=== PATIENT | male | born 1965 | race Caucasian/White ===

== ENCOUNTER 2024-01-01 09:55 | Emergency (ER) | payer MEDICAID, SELFPAY ==
[2024-01-01 09:55] VITALS: BP 118/88; PULSE 87; RESP 16; TEMP 37.2; O2SAT 97; BMI 18.7
--- NOTE | 2024-01-01 11:07 | EDS_ITS ---
HPI History of Present Illness Chief Complaint: Abd Pain Informant: patient and spouse/S.O. Narrative Narrative: 58-year-old male presenting to the emergency room chief complaint of not feeling well. Patient notes about 3 days he has had runny nose cough with sputum production nausea with occasional emesis ear fullness with pain behind the left ear, subjective fever and chills generalized myalgias. He notes that he left work yesterday as well as 2 other people due to the similar symptoms. He denies any diarrhea or rash. He is a smoker. He otherwise denies any other medical conditions. PFSH PFSH Home Medications ?Medication ?Instructions ?Recorded ?Last Taken ?Type doxycycline hyclate 100 mg capsule 100 mg PO BID #20 caps 01/01/24 Unknown Rx Allergy/AdvReac Type Severity Reaction Status Date / Time Penicillins (PCN) Allergy UNKNOWN Verified 01/01/24 09:56 Social History (Updated 01/01/24 @ 11:[address] Idris Meza, DO) Smoking Status: Current every day smoker ROS ROS ED Constitutional Constitutional ED: Reports chills, fever(s) and subjective; Denies weight loss Eyes Eyes: Denies change in vision or diplopia ENT ENT ED: Reports ear pain, rhinorrhea and sore throat Cardiovascular Cardiovascular: Denies chest pain, orthopnea, palpitations or racing heartbeat Respiratory/Chest Respiratory/Chest: Reports cough and sputum; Denies dyspnea or orthopnea Gastrointestinal Gastrointestinal: Reports nausea, vomiting and other; Denies abdominal pain or diarrhea Genitourinary Genitourinary ED: Denies dysuria, hematuria or urinary frequency Musculoskeletal Musculoskeletal: Reports myalgias; Denies arthralgias or neck pain Integumentary Denies abscess or rash Neurologic Neurologic: Denies headache(s) or weakness Psychiatric Psychiatric: Denies anxiety, depression, suicidal ideation or suicidal thoughts Endocrine Endocrinology: Denies polydipsia, polyphagia or polyuria Allergic/Immunologic Allergic/Immunologic ED: Denies mouth swelling, tongue swelling or urticaria EXAM Physical Exam Const Vital Signs: 01/01/24 09:55 01/01/24 11:56 Temperature 99 F Temperature Source Temporal Pulse Rate 87 55 L Respiratory Rate 16 16 Blood Pressure 118/88 H 123/69 H Blood Pressure Mean 98 87 Pulse Ox 97 94 Oxygen Delivery Method Room Air Room Air Positive well nourished and well developed General Appearance ED: well developed HEENT Reports normocephalic, head/scalp atraumatic, TM's clear and moist mucous membranes HEENT Narrative: Mild turbinate edema. Bilateral tympanic membranes appear normal. No mastoid tenderness. No overlying mastoid erythema. Tympanic Membrane ED: Yes TM's clear Eyes PERRL and EOMs intact bilaterally Neck no lymphadenopathy, supple and no JVD Resp normal respiratory effort and clear to auscultation bilaterally Resp Narrative: Moist cough Cardio regular rate, regular rhythm and no murmurs GI normal to inspection, nondistended, normoactive bowel sounds and non-tender Palpation: soft Back/Spine no CVA tenderness and normal ROM Extremity normal to inspection General Extremety ED: Negative for edema General Extremity: Negative for edema Neuro oriented x3 and CN's II-XII intact bilaterally Sensorium / Orientation: alert Motor Exam: strength 5/5 throughout Psych mental status grossly normal Mood & Affect: Negative for depressed or tearful Skin no rashes or lesions noted and no wounds MDM MDM MDM Narrative Medical decision making narrative: Differential diagnosis includes but not limited to pneumonia bronchitis viral syndrome otitis media mastoiditis my independent interpretation the chest x-ray is no acute process. COVID influenza and RSV swabs were negative. Patient clinically appears well. I think most likely has a viral illness. However he is a smoker with chronic changes in his chest x-ray consistent with smoking who has an increase in sputum production. There may be a component of bacterial bronchitis with his headache and right upper send and doxycycline. Would recommend establishing primary care return if worsening or concerns supportive care like fluid hydration rest Tylenol Motrin. History & Record Review Discussion w/independent historian: Patient and Significant other Lab Data Attestation: I reviewed the patient's lab results. Radiography Diagnostic Testing: Clinical Impression(s) from Imaging Studies Chest X-Ray 01/01/24 11:25 IMPRESSION: Hyperinflation. The lungs are clear. Electronically Signed: Conner Figueroa MD at 11:57 EDT , Discharge Plan Triage Chief Complaint: Abd Pain ED Provider: Idris Meza Dx/Rx/DC Orders Clinical Impression: Bronchitis Prescriptions: New doxycycline hyclate 100 mg capsule 100 mg PO BID Qty: 20 0RF Primary Care Provider: Care Physician,No Primary Referrals: Evan Tavarez MD [Med Staff - Print Production Associate] - As Needed (for pcp follow up) Care Physician,No Primary [Primary Care Provider] - Print Language: Malawian Disposition Disposition: Home, Self Care
[2024-01-01] MEDS: Ondansetron ODT 4 MG Tablet PO (11:21)
--- NOTE | 2024-01-01 11:25 | RAD_ITS ---
STUDY: X-RAY CHEST REASON FOR EXAM: Male, 58 years old. Cough TECHNIQUE: Single AP portable view of the chest. COMPARISON: None. FINDINGS: Hyperinflation. The lungs are clear. There is no demonstrated pleural abnormality. Normal size heart. Normal mediastinum and rosemarie. Normal visualized pulmonary arteries. Normal visualized aortic arch and descending thoracic aorta. There are degenerative changes of the visualized thoracic spine. Normal visualized ribs, clavicles, and shoulders. There is no demonstrated abnormality of the visualized soft tissue structures of the upper abdomen. RAD/Chest 1 View (Portable) IMPRESSION: Hyperinflation. The lungs are clear. Electronically Signed: Conner Figueroa MD at 11:57 EDT ,
[2024-01-01 11:56] VITALS: BP 123/69; PULSE 55; RESP 16; O2SAT 94
[2024-01-01 12:32] VITALS: BP 104/73; PULSE 60; RESP 16; TEMP 36.8; O2SAT 96
== END 2024-01-01 12:43 | disposition home or self-care (01) ==
PROVIDERS: Emergency Provider Emergency Medicine; Visit Provider Emergency Medicine
DX: J40 Bronchitis, not specified as acute or chronic (principal); F17.200 Nicotine dependence, unspecified, uncomplicated
CPT/HCPCS: 71045; 87631; 99282

== ENCOUNTER 2024-03-22 12:34 | Emergency (ER) | payer MEDICAID, SELFPAY ==
[2024-03-22 12:36] VITALS: BP 126/77; PULSE 79; RESP 18; TEMP 36.6; O2SAT 99; BMI 15.7
[2024-03-22 12:39] VITALS: BP 126/77; PULSE 79; RESP 18; TEMP 36.6; O2SAT 99
--- NOTE | 2024-03-22 12:58 | RAD_ITS ---
STUDY: X-RAY CHEST REASON FOR EXAM: Male, 59 years old. Cough TECHNIQUE: PA and lateral views of the chest. COMPARISON: Comparison is made with prior study dated January 01, 2024. FINDINGS: There is hyperinflation of the lungs consistent with chronic obstructive lung disease (COPD). There is no demonstrated pleural abnormality. Normal size heart. Normal mediastinum and rosemarie. Normal visualized pulmonary arteries. Normal visualized aortic arch and descending thoracic aorta. There are degenerative changes of the visualized thoracic spine. Normal visualized ribs, clavicles, and shoulders. There is no demonstrated abnormality of the visualized soft tissue structures of the upper abdomen. RAD/Chest PA and Lateral IMPRESSION: Hyperinflation and COPD. Electronically Signed: Conner Figueroa MD at 13:30 EST ,
--- NOTE | 2024-03-22 12:59 | EDS_ITS ---
HPI <JOSE Tripp - Last Filed: 03/22/24 15:08> History of Present Illness Chief Complaint: General Illness Narrative Narrative: Patient presenting today with a productive cough he has had over the past 2 weeks. He reports that he occasionally coughs up yellow and white-colored phlegm. He does have a history of COPD, he does admit to smoking 1 pack/day. He moved to the area from [place] and does not currently have a PCP or rigging engineer. He does report pressure in his chest with coughing. Chronic dyspnea with exertion. No chest pain at rest. He denies any fevers, chills, and abdominal pain. PFSH <JOSE Tripp - Last Filed: 03/22/24 15:08> PFSH Home Medications ?Medication ?Instructions ?Recorded ?Last Taken ?Type doxycycline hyclate 100 mg capsule 100 mg PO BID #20 caps 01/01/24 Unknown Rx albuterol sulfate 90 mcg/actuation 1 - 2 puff inhalation Q4H PRN PRN 03/22/24 Unknown Rx aerosol inhaler (Ventolin HFA) Wheezing #1 inh doxycycline hyclate 100 mg capsule 100 mg PO BID 7 days #13 caps 03/22/24 Unknown Rx prednisone 20 mg tablet 40 mg (2 x 20 mg) PO DAILY 4 days 03/22/24 Unknown Rx #8 tabs Allergy/AdvReac Type Severity Reaction Status Date / Time Penicillins (PCN) Allergy UNKNOWN Verified 03/22/24 12:36 Social History (Updated 01/01/24 @ 11:[address] Idris Meza, DO) Smoking Status: Current every day smoker tobacco type: cigarettes ROS <JOSE Tripp - Last Filed: 03/22/24 15:08> ROS ED Constitutional Constitutional ED: Denies chills or fever(s) Cardiovascular Cardiovascular: Denies chest pain or palpitations Respiratory/Chest Respiratory/Chest: Reports cough and dyspnea on exertion; Denies wheezing Gastrointestinal Gastrointestinal: Denies abdominal pain, nausea or vomiting Musculoskeletal Musculoskeletal: Denies arthralgias or myalgias Integumentary Denies rash Neurologic Neurologic: Denies weakness EXAM <JOSE Tripp Last Filed: 03/22/24 15:08> Physical Exam Const Vital Signs: 03/22/24 12:36 03/22/24 12:39 03/22/24 12:44 Temperature 97.9 F 97.9 F Temperature Source Oral Oral Pulse Rate 79 79 Respiratory Rate 18 18 Respiratory Effort Non-Labored Blood Pressure 126/77 H 126/77 H Blood Pressure Mean 93 93 Pulse Ox 99 99 Oxygen Delivery Method Room Air Room Air 03/22/24 13:19 03/22/24 13:19 Temperature Temperature Source Pulse Rate 75 Respiratory Rate 20 H Respiratory Effort Blood Pressure Blood Pressure Mean Pulse Ox 96 Oxygen Delivery Method Room Air Positive well nourished, well developed and no apparent distress General Appearance ED: well developed HEENT Reports normocephalic and head/scalp atraumatic Mouth ED: Yes moist mucous membranes normal Eyes PERRL and EOMs intact bilaterally Neck full ROM and supple Chest Wall inspection of chest normal Resp normal respiratory effort Resp Narrative: Mild expiratory wheezes to the bilateral lung rojas Cardio regular rate and regular rhythm GI soft to palpation, non-tender, non-distended and no masses Back/Spine normal ROM and normal to inspection Extremity normal to inspection and full ROM Neuro oriented x3, CN's II-XII intact bilaterally, moves all extremities, no focal motor deficits and no sensory deficits noted Sensorium / Orientation: awake and alert Psych mental status grossly normal and thought process normal Skin no rashes or lesions noted and no wounds <Dr. Idris Meza DO - Last Filed: 03/22/24 14:21> Physical Exam Const Vital Signs: 03/22/24 12:36 03/22/24 12:39 03/22/24 12:44 Temperature 97.9 F 97.9 F Temperature Source Oral Oral Pulse Rate 79 79 Respiratory Rate 18 18 Respiratory Effort Non-Labored Blood Pressure 126/77 H 126/77 H Blood Pressure Mean 93 93 Pulse Ox 99 99 Oxygen Delivery Method Room Air Room Air 03/22/24 13:19 03/22/24 13:19 Temperature Temperature Source Pulse Rate 75 Respiratory Rate 20 H Respiratory Effort Blood Pressure Blood Pressure Mean Pulse Ox 96 Oxygen Delivery Method Room Air MDM <JOSE Tripp - Last Filed: 03/22/24 15:08> [facility] Narrative Medical decision making narrative: Patient presenting today due to a productive cough he has had over the past 2 weeks. He is nontoxic-appearing. His oxygen saturation is 99% on room air. He is afebrile. He does not have a rigging engineer in the area and uses Symbicort and Advair. Chest x-ray obtained and shows changes consistent with COPD. I do think that patient would benefit from antibiotics and steroids. He will be started on doxycycline and prednisone with first doses here. I have also given him an albuterol inhaler. Social work did provide patient with PCP referral resources. He was referred to pulmonology. Patient discharged home in stable condition. I have personally performed a face to face assessment of the patient and have reviewed the [place] Note. I performed a substantive portion of the visit including all aspects of the following. My carbajal findings include: History is 59-year-old male with a history of COPD presenting with cough sputum production and some dyspnea. Patient states he has been using Advair and also curing his Symbicort as a rescue inhaler.. States he used to have a rigging engineer in [place]. He does not have a home. Patient states for the past 2 weeks he has had cough and some shortness of breath and is producing sputum. He was seen in December of this year with similar symptoms. Exam is afebrile vital signs are stable. Slight expiratory wheeze with some rhonchi. Not in any distress. Medical Decison Making my independent interpretation of the plain films of the chest is no definitive infiltrate or pneumothorax. No pleural effusion is noted. Patient received an aerosol here in the department. Will be placing him on doxycycline as well as prednisone. Have asked social work to the patient with resources and obtain primary care. Will refer him also to pulmonology. Radiography X-Ray: Read by ED Physician Diagnostic Testing: Clinical Impression(s) from Imaging Studies Chest X-Ray 03/22/24 12:58 IMPRESSION: Hyperinflation and COPD. Electronically Signed: Conner Figueroa MD at 13:30 EST , <Dr. Idris Meza, DO - Last Filed: 03/22/24 14:21> [facility] Narrative Medical decision making narrative: I have personally performed a face to face assessment of the patient and have reviewed the [place] Note. I performed a substantive portion of the visit including all aspects of the following. My carbajal findings include: History is 59-year-old male with a history of COPD presenting with cough sputum production and some dyspnea. Patient states he has been using Advair and also curing his Symbicort as a rescue inhaler.. States he used to have a rigging engineer in [place]. He does not have a home. Patient states for the past 2 weeks he has had cough and some shortness of breath and is producing sputum. He was seen in December of this year with similar symptoms. Exam is afebrile vital signs are stable. Slight expiratory wheeze with some rhonchi. Not in any distress. Medical Decison Making my independent interpretation of the plain films of the chest is no definitive infiltrate or pneumothorax. No pleural effusion is noted. Patient received an aerosol here in the department. Will be placing him on doxycycline as well as prednisone. Have asked social work to the patient with resources and obtain primary care. Will refer him also to pulmonology. History & Record Review Discussion w/independent historian: Patient Additional record(s) reviewed:: Prior ED visit Radiography Diagnostic Testing: Clinical Impression(s) from Imaging Studies Chest X-Ray 03/22/24 12:58 IMPRESSION: Hyperinflation and COPD. Electronically Signed: Conner Figueroa MD at 13:30 EST , Discharge Plan Triage Chief Complaint: General Illness ED Midlevel Provider: Rekha Avalos ED Provider: Idris Meza Dx/Rx/DC Orders Clinical Impression: COPD exacerbation Instructions: ED COPD Flare Prescriptions: New doxycycline hyclate 100 mg capsule 100 mg PO BID 7 Days Qty: 13 0RF prednisone 20 mg tablet 40 mg PO DAILY 4 Days Qty: 8 0RF albuterol sulfate [Ventolin HFA] 90 mcg/actuation HFA aerosol inhaler 1 - 2 puff inhalation Q4H PRN PRN (Reason: Wheezing) Qty: 1 0RF No Action doxycycline hyclate 100 mg capsule 100 mg PO BID Qty: 20 0RF Stand Alone Forms: ED Work / School Excuse Primary Care Provider: Care Physician,No Primary Referrals: Canelo Medina DO [Med Staff - Active Staff] - 5-7 Days Care Physician,No Primary [Primary Care Provider] - Activity Restrictions/Additional Instructions: Please follow-up with the rigging engineer. Return for any worsening of your symptoms. Take 1 dose of the antibiotic this evening and begin the prednisone tomorrow. Print Language: Paraguayan Disposition Disposition: Home, Self Care Discharge Date/Time: 03/22/24 13:42
[2024-03-22] MEDS: Albuterol 2.5 MG/3 ML VIAL.NEB. INHALATION (13:17)
[2024-03-22] MEDS: Ipratropium/Albuterol Sulfate 3 ML AMPUL.NEB INHALATION (13:17)
[2024-03-22 13:19] VITALS: PULSE 75; RESP 20; O2SAT 96
[2024-03-22] MEDS: predniSONE 20 MG Tablet 40 MG PO (13:36)
[2024-03-22] MEDS: Doxycycline 100 MG CAPSULE PO (13:36)
--- NOTE | 2024-03-22 14:30 | CM.ED ---
Social Work Reason for visit: No PCP Patient confirmed that he did not have a PCP, resource list given that has local physicians. Patient accepting of the list. Nichole Singh, CD [employer] MAKE UP HELPER, STRINGING MACHINE TENDER
== END 2024-03-22 13:42 | disposition home or self-care (01) ==
PROVIDERS: Emergency Provider Emergency Medicine; Visit Provider Emergency Medicine
DX: J44.1 Chronic obstructive pulmonary disease with (acute) exacerbation (principal); F17.210 Nicotine dependence, cigarettes, uncomplicated; Z88.0 Allergy status to penicillin
CPT/HCPCS: 71046; 94640; 99282

== ENCOUNTER 2024-03-29 12:05 | Emergency (ER) | payer MEDICAID, SELFPAY ==
[2024-03-29 12:06] VITALS: BP 102/66; PULSE 90; RESP 20; TEMP 36.5; O2SAT 96; BMI 18.9
--- NOTE | 2024-03-29 12:50 | EKG12_ITS ---
Test Reason : SOB Blood Pressure : */* mmHG Vent. Rate : 74 BPM Atrial Rate : 74 BPM P-R Int : 142 ms QRS Dur : 82 ms QT Int : 364 ms P-R-T Axes : 87 90 86 degrees QTcB Int : 404 ms Normal sinus rhythm with sinus arrhythmia Rightward axis Borderline ECG No previous ECGs available Confirmed by El Muse ([id number]), news video editor VICENTE QUICK ([id number]) on 04/02/2024 6:57:28 AM Referred By: Confirmed By: El Muse
--- NOTE | 2024-03-29 12:52 | EDS_ITS ---
HPI <VALENTINA Salmeron - Last Filed: 03/29/24 14:30> History of Present Illness Chief Complaint: Shortness of Breath Narrative Narrative: Patient is a 59-year-old male with history of COPD, smokes 1 pack/day who recently moved up here a few months ago from [place]. Presenting to the emergency department for ongoing cough and shortness of breath. Patient was seen here 1 week ago, chest x-ray was completed, diagnosed with COPD exacerbation, placed on doxycycline, 40 mg of prednisone for 4 days. Patient dates today while at work, he had more chest discomfort, he had worsening coughing and shortness of breath and is here for reevaluation. He states he had to leave work. PFS <VALENTINA Samleron - Last Filed: 03/29/24 14:30> [facility] Medical History (Updated 03/30/24 @ 00:01 by Nelda Gutierrez) SOB (shortness of breath) Home Medications ?Medication ?Instructions ?Recorded ?Last Taken ?Type doxycycline hyclate 100 mg capsule 100 mg PO BID #20 caps 01/01/24 Unknown Rx albuterol sulfate 90 mcg/actuation 1 - 2 puff inhalation Q4H PRN PRN 03/22/24 Unknown Rx aerosol inhaler (Ventolin HFA) Wheezing #1 inh doxycycline hyclate 100 mg capsule 100 mg PO BID 7 days #13 caps 03/22/24 Unknown Rx prednisone 20 mg tablet 40 mg (2 x 20 mg) PO DAILY 4 days 03/22/24 Unknown Rx #8 tabs prednisone 50 mg tablet 50 mg PO DAILY #5 tabs 03/29/24 Unknown Rx Allergy/AdvReac Type Severity Reaction Status Date / Time Penicillins (PCN) Allergy UNKNOWN Verified 03/29/24 12:06 Social History (Updated 01/01/24 @ 11:[address] Idris Meza, DO) Smoking Status: Current every day smoker tobacco type: cigarettes ROS <VALENTINA Salmeron - Last Filed: 03/29/24 14:30> ROS ED ROS Narrative Constitutional: Negative for fever, chills, weight loss, weakness Eyes: Negative for vision loss, vision change, double vision ENT: Negative for any sore throat, ear pain, congestion Cardiovascular: Negative for any chest pain, tightness, palpitations Respiratory: Negative for any , sputum production, hemoptysis. Positive for cough dyspnea, dyspnea on exertion, orthopnea Gastrointestinal: Negative for any abdominal pain, nausea, vomiting, diarrhea, constipation, blood in stool, blood in vomit : Negative for any urinary frequency, dysuria, retention, blood in urine Muscle skeletal: Negative for any neck pain, back pain Neurological: Negative for any headache, syncope, dizziness Skin: Negative for any rashes, itching, abrasions, lacerations Psychiatric: Negative for any depression, anxiety, stress, suicidal ideation, homicidal ideation Hematologic: Negative for any excessive bruising, easy bleeding EXAM <VALENTINA Salmeron - Last Filed: 03/29/24 14:30> Physical Exam Narrative Exam Narrative: Vital signs reviewed. Patient speaking complete sentences, patient is not hypoxic, pulse oximetry is 96%. HEET: Head normocephalic atraumatic, TMs clear bilaterally. Posterior pharynx is clear, moist mucous membranes. Nares clear bilaterally. Neck: Supple with no lymphadenopathy or tenderness. No signs of meningismus. Cardiac: Regular rate and rhythm no murmurs gallops or rubs, equal peripheral pulses bilaterally. Respiratory: Expiratory wheezes throughout. No chest tenderness. Abdomen: Soft, nontender, nondistended. No abdominal bruit or pulsatile masses. No hepatosplenomegaly Extremities: No peripheral edema, no signs of gross trauma or deformity. Active full range of motion of all extremities. Neuro: Cranial nerves II through XII intact, no focal neurological deficits. Skin: Clean dry and intact with no rash, purpura, petechiae, vesicles or pustules. Backs/flank: No CVA tenderness, no midline spinal tenderness, no deformity. Psych: Normal mood and affect. No SI, HI or acute psychosis. Const Vital Signs: 03/29/24 12:06 03/29/24 12:49 03/29/24 13:06 Temperature 97.7 F L Temperature Source Oral Pulse Rate 90 73 Respiratory Rate 20 H 18 Respiratory Effort Normal Non-Labored Respiratory Pattern Normal Blood Pressure 102/66 Blood Pressure Mean 78 Pulse Ox 96 Oxygen Delivery Method Room Air 03/29/24 13:11 03/29/24 13:58 Temperature 97.7 F L Temperature Source Oral Pulse Rate 76 98 Respiratory Rate 18 16 Respiratory Effort Respiratory Pattern Blood Pressure 93/65 101/59 L Blood Pressure Mean 74 73 Pulse Ox 95 96 Oxygen Delivery Method Room Air <Dr. Pam Bañuelos DO - Last Filed: 04/01/24 00:22> Physical Exam Const Vital Signs: 03/29/24 12:06 03/29/24 12:49 03/29/24 13:06 Temperature 97.7 F L Temperature Source Oral Pulse Rate 90 73 Respiratory Rate 20 H 18 Respiratory Effort Normal Non-Labored Respiratory Pattern Normal Blood Pressure 102/66 Blood Pressure Mean 78 Pulse Ox 96 Oxygen Delivery Method Room Air 03/29/24 13:11 03/29/24 13:58 Temperature 97.7 F L Temperature Source Oral Pulse Rate 76 98 Respiratory Rate 18 16 Respiratory Effort Respiratory Pattern Blood Pressure 93/65 101/59 L Blood Pressure Mean 74 73 Pulse Ox 95 96 Oxygen Delivery Method Room Air MDM <VALENTINA Salmeron - Last Filed: 03/29/24 14:30> [facility] Lab Data Labs: Laboratory Results - last 24 hr 03/29/24 13:00 WBC 11.0 RBC 4.46 L Hgb 14.3 Hct 40.3 MCV 90.4 MCH 32.1 H MCHC 35.5 RDW Std Deviation 41.1 RDW Coeff of Kand[place] 12.5 Plt Count 365 MPV 8.9 Immature Gran % (Auto) 0.500 Neut % (Auto) 59.3 Lymph % (Auto) 27.7 [place] % (Auto) 9.5 Eos % (Auto) 2.2 Baso % (Auto) 0.8 Absolute Neuts (auto) 6.5 Absolute Lymphs (auto) 3.04 Nucleated RBC % 0 Sodium 135 L Potassium 4.0 Chloride 100 Carbon Dioxide 30.0 Anion Gap 5 BUN 16 Creatinine 0.93 Estim Creat Clear Calc 64.75 Est GFR (MDRD) Af Amer 106 Est GFR (MDRD) Non-Af 88 BUN/Creatinine Ratio 17.2 Glucose 108 H Calcium 9.1 Troponin I High Sens < 3 L B-Natriuretic Peptide 7.0 Radiography Diagnostic Testing: Clinical Impression(s) from Imaging Studies Chest X-Ray 03/29/24 13:22 IMPRESSION: No acute cardiopulmonary process identified. Electronically Signed: Portia Graham MD at 13:48 EST , EKG Sinus rhythm with sinus arrhythmia: Attestation: I personally reviewed and interpreted this EKG as follows: Interpretation: Sinus Rhythm Comments: Sinus rhythm with sinus arrhythmia, rate of 74 bpm, DC interval 142 ms, QRS duration 82 ms, no acute ST elevation, no acute infarct noted. Treatment and Re-Evaluation :: Differential diagnosis includes however is not limited to: Community-acquired pneumonia, COPD exacerbation, ACS, ME Patient appears generally well, vital signs are stable, patient is nontoxic- appearing. Presenting to the emergency department with complaints of chest pr essure, ongoing shortness of breath. Secondary to this is the patient's second visit in 1 week, patient will receive some basic laboratory values, breathing treatments as well as a chest x-ray and EKG. All radiologic examinations were read, reviewed by the emergency department attending. From these reads, a plan of care will be put in place. Patient's CBC was unremarkable, chemistries were unremarkable, troponin was negative, BNP was negative. Patient's chest x-ray shows no acute cardiopulmonary process identified, chronic COPD. Patient responded well to breathing treatments as well as steroids. He will be placed on another course of steroids. He will currently walk with a pulse ox to ensure he does not become hypoxic. Patient was able to walk, did not drop below 94%. At this time, patient will be discharged home on a 50 mg prednisone burst. Patient instructed return for any worsening symptoms, stable for discharge. <Dr. Pam Bañuelos, DO - Last Filed: 04/01/24 00:22> [facility] Lab Data Attestation: I reviewed the patient's lab results. Labs: Laboratory Results - last 24 hr 03/29/24 13:00 WBC 11.0 RBC 4.46 L Hgb 14.3 Hct 40.3 MCV 90.4 MCH 32.1 H MCHC 35.5 RDW Std Deviation 41.1 RDW Coeff of Kandis 12.5 Plt Count 365 MPV 8.9 Immature Gran % (Auto) 0.500 Neut % (Auto) 59.3 Lymph % (Auto) 27.7 [place] % (Auto) 9.5 Eos % (Auto) 2.2 Baso % (Auto) 0.8 Absolute Neuts (auto) 6.5 Absolute Lymphs (auto) 3.04 Nucleated RBC % 0 Sodium 135 L Potassium 4.0 Chloride 100 Carbon Dioxide 30.0 Anion Gap 5 BUN 16 Creatinine 0.93 Estim Creat Clear Calc 64.75 Est GFR (MDRD) Af Amer 106 Est GFR (MDRD) Non-Af 88 BUN/Creatinine Ratio 17.2 Glucose 108 H Calcium 9.1 Troponin I High Sens < 3 L B-Natriuretic Peptide 7.0 Radiography Diagnostic Testing: Clinical Impression(s) from Imaging Studies Chest X-Ray 03/29/24 13:22 IMPRESSION: No acute cardiopulmonary process identified. Electronically Signed: Portia Graham MD at 13:48 EST , Treatment and Re-Evaluation :: Differential diagnosis includes however is not limited to: Community-acquired pneumonia, COPD exacerbation, ACS, ME Patient appears generally well, vital signs are stable, patient is nontoxic- appearing. Presenting to the emergency department with complaints of chest pressure, ongoing shortness of breath. Secondary to this is the patient's second visit in 1 week, patient will receive some basic laboratory values, breathing treatments as well as a chest x-ray and EKG. All radiologic examinations were read, reviewed by the emergency department attending. From these reads, a plan of care will be put in place. Patient's CBC was unremarkable, chemistries were unremarkable, troponin was negative, BNP was negative. Patient's chest x-ray shows no acute cardiopulmonary process identified, chronic COPD. Patient responded well to breathing treatments as well as steroids. He will be placed on another course o f steroids. He will currently walk with a pulse ox to ensure he does not become hypoxic. Patient was able to walk, did not drop below 94%. At this time, patient will be discharged home on a 50 mg prednisone burst. Patient instructed return for any worsening symptoms, stable for discharge. I have personally performed a face to face assessment of the patient and have reviewed the [place] Note. I performed a substantive portion of the visit including all aspects of the following. My carbajal findings include: History is patient is a 59-year-old male with history of long-term tobacco use presenting with continued cough and shortness of breath. He recently was on a course of doxycycline as well as prednisone. He stopped his prednisone 2 days ago and his respiratory symptoms have worsened. Denies any fever. Does have chest tightness. Denies any leg swelling. Denies a history of DVT or PE. On exam patient overall is well-appearing. He does have a wheezing. No crackles appreciated. Vital signs largely normal although sometimes his O2 sat does dip down to 92%. Patient's O2 saturation actually improves with ambulation in the emergency room. Chest x-ray viewed by myself as well as radiology does not show any acute infiltrate. Patient's lab work largely normal including troponin, CBC and BMP. I suspect patient is having continued COPD exacerbation likely the longer course of steroids. Is given additional prescription steroids. At this time I do not think he requires further antibiotics. Patient is agreeable with this. He has inhalers to use at home. Is given return preca utions. Discharged home in stable condition. Other additions or changes: [None] Discharge Plan Triage Chief Complaint: Shortness of Breath ED Midlevel Provider: Gunnar Olivier ED Provider: Pam Bañuelos Dx/Rx/DC Orders Clinical Impression: COPD exacerbation Instructions: Asthma Triggers Allergens, Asthma COPD Trigger Control Prescriptions: New prednisone 50 mg tablet 50 mg PO DAILY Qty: 5 0RF No Action doxycycline hyclate 100 mg capsule 100 mg PO BID Qty: 20 0RF doxycycline hyclate 100 mg capsule 100 mg PO BID 7 Days Qty: 13 0RF prednisone 20 mg tablet 40 mg PO DAILY 4 Days Qty: 8 0RF albuterol sulfate [Ventolin HFA] 90 mcg/actuation HFA aerosol inhaler 1 - 2 puff inhalation Q4H PRN PRN (Reason: Wheezing) Qty: 1 0RF Stand Alone Forms: ED Work / School Excuse, Work / School Excuse Primary Care Provider: Care Physician,No Primary Referrals: Care Physician,No Primary [Primary Care Provider] - Geovany Brower MD [[facility]] - Activity Restrictions/Additional Instructions: Please follow-up outpatient. Print Language: Yakut Disposition Disposition: Home, Self Care Discharge Date/Time: 03/29/24 14:39
[2024-03-29] MEDS: Ipratropium/Albuterol Sulfate 3 ML AMPUL.NEB INHALATION (13:05)
[2024-03-29] MEDS: Albuterol 2.5 MG/3 ML VIAL.NEB. 5 MG INHALATION (13:05)
[2024-03-29 13:06] VITALS: PULSE 73; RESP 18
[2024-03-29] MEDS: MethylPREDNISolone 125 MG/2 ML Vial IV (13:08)
[2024-03-29 13:09] LABS: Absolute Lymphocyte Count 3.04 X10^3/uL (0.83-4.51); Absolute Neutrophil Count 6.5 X10^3/uL (2.0-7.7); Basophil# 0.09 X10^3/uL; Basophil% 0.8 % (0-1); Eosinophil# 0.24 X10^3/uL; Eosinophils% 2.2 % (0-5); Hematocrit 40.3 % (40-54); Hemoglobin 14.3 g/dL (13.0-16.5); Lymphocyte # 3.04 X10^3/ul (0.83-4.51); Lymphocyte % 27.7 % (19-41); Mean Corp Hgb Conc 35.5 g/dL (32-36); Mean Corpuscular Hgb 32.1 pg (27.0-32.0); Mean Corpuscular Volume 90.4 fL (80-94); Mean Platelet Vol. 8.9 fl (6.2-12.0); Monocyte# 1.04 X10^3/uL; Monocyte% 9.5 % (0-10); NRBC Flagged by Analyzer 0 % (0-5); Neutrophil # 6.52 X10^3/uL (2.7-7.7); Neutrophil % 59.3 % (47-70); Platelet Count 365 K/mm3 (150-450); RBC Distribution Width CV 12.5 % (11.6-14.6); RBC Distribution Width SD 41.1 fl (35.1-43.9); Red Blood Count 4.46 M/mm3 (4.6-6.2)
[2024-03-29 13:11] VITALS: BP 93/65; PULSE 76; RESP 18; TEMP 36.5; O2SAT 95
--- NOTE | 2024-03-29 13:22 | RAD_ITS ---
HISTORY: cough. TECHNIQUE: XR Chest 2 Views. COMPARISON: 03/22/2024. FINDINGS: CARDIOMEDIASTINAL BORDERS: Cardiac silhouette within normal limits in size. Mediastinal contour unremarkable. LUNGS: Radiographically clear. Chronic hyperinflation PLEURA: No pleural effusion or pneumothorax seen. OSSEOUS STRUCTURES: Mild degenerative change and scoliosis. RAD/Chest PA and Lateral IMPRESSION: No acute cardiopulmonary process identified. Electronically Signed: Portia Graham MD at 13:48 EST ,
[2024-03-29 13:25] LABS: Anion Gap 5 (5-15); BUN 16 mg/dL (7-18); BUN/Creat Ratio 17.2 RATIO (10-20); Calcium,Total 9.1 mg/dL (8.5-10.1); Chloride 100 mmol/L (98-107); Creatinine, Serum 0.93 mg/dL (0.70-1.30); EST Glomerular Filtration Rate 88 mL/min (>60); Est Glom Filt Rate - Afr Amer 106 mL/min (>60); Estimated Creatinine Clearance 64.75 ml/min; Glucose 108 mg/dL (74-106); Sodium Level 135 mmol/L (136-145); Troponin-I HS < 3 pg/mL (3.0-78.0)
[2024-03-29 13:58] VITALS: BP 101/59; PULSE 98; RESP 16; O2SAT 96
[2024-03-29 14:16] VITALS: BP 105/63; PULSE 77; RESP 20; TEMP 36.5; O2SAT 92
[2024-03-29 14:20] VITALS: O2SAT 91
== END 2024-03-29 14:39 | disposition home or self-care (01) ==
PROVIDERS: Nurse Practitioner; Emergency Provider Emergency Medicine; Visit Provider Emergency Medicine
DX: J44.1 Chronic obstructive pulmonary disease with (acute) exacerbation (principal); F17.210 Nicotine dependence, cigarettes, uncomplicated
CPT/HCPCS: 71046; 80048; 83880; 84484; 85025; 93005; 94640; 96374; 99284; A4216